=== PATIENT | female | born 1960 | race Asian ===

== ENCOUNTER 2018-04-10 10:17 | Emergency (ER) | payer OTHER ==
[~2018-04-10] VITALS: Ht 170.2 cm; Wt 72.6 kg
[~2018-04-10 10:17] MED LIST: ACET-2619 PO; ALLO100T21 PO; CEFT1PDS43 IV; COLC0.6C PO; DOCU-7 PO; INSU100S55 SC; LISI10TA11 PO; METO-50 PO; ZOLP5TAB7 PO; [UNRECOGNIZED DRUG - CODE] IJ
[2018-04-10 10:19] VITALS: BP 135/71
--- NOTE | 2018-04-10 10:30 | NUR ---
PT. CAME INTO THE ED DUE TO BODY ACHES AND BLEEDING WHEN WIPING. PT. STATES " I HAVE JUST BEEN HAVING BODY ACHES FOR ABOUT A MONTH AND WHENEVER I WIPE THEIR IS SOME BLOOD ON THE TISSUE AND ITS JUST CONCERNING ME BECAUSE I ALSO FEEL A PRESSURE SENSATION WHEN I PEE". 8/10 PRESSURE PAIN IN LOWER ABD THAT IS NON RADIATING. SKIN WARM AND DRY. RR EVEN AND UNLABORED. PT. ABLE TO SPEAK IN FULL AND COMPLETE SENTENCES. PT C/O DIZZYNESS AND CHILLS X 1 MONTH. ER MD NOTIFIED. SAFETY PRECAUTIONS IMPLEMENTED. WILL CONTINUE TO MONITOR.
[2018-04-10] MEDS ORDERED: METO25TE71 PO (11:10)
[2018-04-10] MEDS ORDERED: AMLO5TAB PO (11:10)
[2018-04-10] MEDS ORDERED: NACL 0.9% 1,000 ML IV ONE (11:10)
[2018-04-10] MEDS ORDERED: HYDR-1100 PO (11:10)
[2018-04-10] MEDS ORDERED: METO50TE2 PO (11:10)
--- NOTE | 2018-04-10 11:25 | NUR ---
ULTRASOUND AT BEDSIDE AT THIS TIME.
[2018-04-10 11:27] LABS: BASOPHILS # (AUTO) 0.1 K/uL (0.00-0.22); BASOPHILS % (AUTO) 0.9 % (0.0-2.0); EOSINOPHILS # (AUTO) 0.3 K/uL (0-0.4); EOSINOPHILS % (AUTO) 4.5 % (0.0-4.0); HEMATOCRIT 41.3 % (36-48); LYMPHOCYTES % (AUTO) 25.4 % (20.5-51.1); MEAN CORPUSCULAR HEMOGLOBIN 29 pg (27-31); MEAN CORPUSCULAR HGB CONC 34 g/dL (33-37); MEAN CORPUSCULAR VOLUME 86.6 fL (80-94); MONOCYTES # (AUTO) 0.7 K/uL (0.8-1.0); MONOCYTES % (AUTO) 9.4 % (1.7-9.3); NEUTROPHILS # (AUTO) 4.6 K/uL (1.8-7.7); NEUTROPHILS % (AUTO) 59.8 % (42.2-75.2); PLATELET COUNT (AUTO) 225 K/uL (140-450); RED BLOOD CELL COUNT(AUTO) 4.77 MIL/uL (4.20-5.40); RED CELL DISTRIBUTION WIDTH 13.8 % (11.6-13.7); WHITE BLOOD COUNT (AUTO) 7.7 K/uL (4.8-10.8)
[2018-04-10 11:32] LABS: ANION GAP 13.9 (8-16); CARBON DIOXIDE 26.7 mmol/L (21-32); CREATININE 2.4 mg/dL (0.6-1.3); POTASSIUM 4.6 mmol/L (3.5-5.1)
[2018-04-10 11:49] LABS: APPEARANCE,URINE CLEAR (CLEAR); COLOR,URINE YELLOW (YELLOW); UGLUCOSE 3+ (NEGATIVE)
[2018-04-10 11:50] LABS: BILIRUBIN,URINE NEGATIVE (NEGATIVE); BLOOD, URINE NEGATIVE (NEGATIVE); LEUKOCYTE ESTERASE ,URINE NEGATIVE (NEGATIVE); NITRITE, URINE NEGATIVE (NEGATIVE); RBC,URINE NONE SEEN /HPF (0-5); WBC,URINE 0-5 (RARE) /HPF (0-5)
--- NOTE | 2018-04-10 12:30 | NUR ---
PT. RESTING COMFORTABLY IN BED, RR EVEN AND UNLABORED. WILL CONTINUE TO MONITOR. VSS.
[2018-04-10 13:26] VITALS: BP 156/84
--- NOTE | 2018-04-10 13:26 | NUR ---
Patient discharged with v/s stable. Written and verbal after care instructions given and explained. Patient verbalized understanding. Ambulatory with steady gait. All questions addressed prior to discharge. Advised to follow up with PMD.
== END 2018-04-10 13:26 | disposition home or self-care (01) ==
LOC: MED 10:17
DX: N28.9 Disorder of kidney and ureter, unspecified (principal); E11.65 Type 2 diabetes mellitus with hyperglycemia; I10 Essential (primary) hypertension; Z90.710 Acquired absence of both cervix and uterus; Z86.73 Personal history of transient ischemic attack (TIA), and cerebral infarction without residual deficits; Z79.899 Other long term (current) drug therapy
CPT/HCPCS: 36415; 76830; 80048; 81001; 82948; 85025; 96360; 99285; J7030; Q0092

== ENCOUNTER 2018-07-30 10:04 | Emergency (ER) | payer OTHER ==
[~2018-07-30] VITALS: Ht 167.6 cm; Wt 68.7 kg
[~2018-07-30 10:04] MED LIST changes: -ACET-2619 PO; +AMLO5TAB PO; -CEFT1PDS43 IV; -DOCU-7 PO; +HYDR-1100 PO; -LISI10TA11 PO; -METO-50 PO; +METO50TE2 PO; -ZOLP5TAB7 PO; -[UNRECOGNIZED DRUG - CODE] IJ
[2018-07-30 10:12] VITALS: BP 181/105
--- NOTE | 2018-07-30 10:22 | NUR ---
pt amb to er bed 5
--- NOTE | 2018-07-30 10:26 | NUR ---
BIB SELF WITH C/O URINARY FREQUENCY, BURNING ON URINATION, BLOODY URINE, AND LOWER ABD PRESSURE PAIN SINCE LAST NIGHT WITH DIZZINESS.HX; DM, HTN. RX; INSULIN, METROPOLOL. DENIES N/V/D; SKIN IS PINK/WARM/DRY; AAOX4 WITH EVEN AND STEADY GAIT.PATIENT STATES PAIN OF 0/10 AT THIS CLEMENT. PATIENT POSITIONED FOR COMFORT; HOB ELEVATED; BEDRAILS UP X2; BED DOWN. ER MD MADE AWARE OF PT STATUS.
[2018-07-30] MEDS ORDERED: LEVOFLOXACIN 500 MG TAB PO ONE (11:35)
[2018-07-30] MEDS ORDERED: cefTRIAXone 1,000 MG in LIDOCAINE 1% ***ER ONLY *** 2.1 ML IM ONE (11:35)
[2018-07-30] MEDS ORDERED: INSULIN REGULAR, HUMAN 100 UNIT/ML VIAL SUBQ ONE (11:35)
[2018-07-30] MEDS ORDERED: DEXAMETHASONE 10 MG/ML VIAL IM ONE (11:35)
[2018-07-30] MEDS ORDERED: KETOROLAC 60 MG/2 ML VIAL IM ONE (11:35)
[2018-07-30] MEDS ORDERED: cefTRIAXone 1,000 MG VIAL ONE (12:03)
[2018-07-30] MEDS ORDERED: LIDOCAINE MPF 1% 5mL VIAL ONE (12:05)
[2018-07-30 13:00] VITALS: BP 150/85
--- NOTE | 2018-07-30 13:24 | NUR ---
Patient discharged with v/s stable. Written and verbal after care instructions given and explained. Patient alert, oriented and verbalized understanding of instructions. Ambulatory with steady gait. All questions addressed prior to discharge. ID band removed. Patient advised to follow up with PMD. Rx of VOLTAREN 75MG AND LEVAQUIN 250MG given. Patient educated on indication of medication including possible reaction and side effects. Opportunity to ask questions provided and answered.
== END 2018-07-30 13:24 | disposition home or self-care (01) ==
LOC: MED 10:04
DX: N30.90 Cystitis, unspecified without hematuria (principal); E11.65 Type 2 diabetes mellitus with hyperglycemia; M06.9 Rheumatoid arthritis, unspecified; R42 Dizziness and giddiness; I10 Essential (primary) hypertension; Z79.899 Other long term (current) drug therapy; Z79.4 Long term (current) use of insulin
CPT/HCPCS: 81002; 81025; 96372; 99283; J0696; J1100; J1815; J1885; J2001

== ENCOUNTER 2018-10-14 16:40 | Emergency (ER) | payer OTHER ==
[~2018-10-14] VITALS: Ht 170.2 cm; Wt 68.0 kg
[2018-10-14 16:45] VITALS: BP 253/137
--- NOTE | 2018-10-14 16:57 | NUR ---
58 Y FEMALE BIB [employer] FOR PRE-BOOK. PT CAUGHT STEALING AT [employer], PT THEN C/O DIZZINESS AND NOTED TO HAVE ELEVATED BP. BP IS 253/137. DR DIAMOND NOTIFIED. OTHER VITALS STABLE AT THIS TIME. PT SPEAKING IN FULL COMPLETE SENTENCES. AAOX4. BED IS DOWN, LOCKED, BED RAIL X 1, ERMD TO SEE PT. PMH- DM, HTN
[2018-10-14] MEDS ORDERED: LABETALOL 100 MG/20 ML VIAL IVP ONE (17:05)
--- NOTE | 2018-10-14 17:19 | NUR ---
[facility] EMT AT BEDSIDE FOR EKG
--- NOTE | 2018-10-14 17:26 | NUR ---
LAB AT BEDSIDE
[2018-10-14 17:34] LABS: BASOPHILS # (AUTO) 0.1 K/uL (0.00-0.22); EOSINOPHILS # (AUTO) 0.3 K/uL (0-0.4); EOSINOPHILS % (AUTO) 4.3 % (0.0-4.0); HEMATOCRIT 40.8 % (36-48); HEMOGLOBIN 13.8 g/dL (12.0-16.0); LYMPHOCYTES # (AUTO) 1.7 K/uL (2.5-16.5); LYMPHOCYTES % (AUTO) 24.9 % (20.5-51.1); MEAN CORPUSCULAR HEMOGLOBIN 29 pg (27-31); MEAN CORPUSCULAR HGB CONC 34 g/dL (33-37); MEAN CORPUSCULAR VOLUME 86.2 fL (80-94); MONOCYTES # (AUTO) 0.6 K/uL (0.8-1.0); MONOCYTES % (AUTO) 8.7 % (1.7-9.3); NEUTROPHILS # (AUTO) 4.1 K/uL (1.8-7.7); NEUTROPHILS % (AUTO) 61.1 % (42.2-75.2); PLATELET COUNT (AUTO) 210 K/uL (140-450); RED BLOOD CELL COUNT(AUTO) 4.74 MIL/uL (4.20-5.40); RED CELL DISTRIBUTION WIDTH 13.6 % (11.6-13.7); WHITE BLOOD COUNT (AUTO) 6.8 K/uL (4.8-10.8)
--- NOTE | 2018-10-14 17:41 | NUR ---
PT TAKEN TO CT VIA WHEELCHAIR WITH [employer] OFFICER
--- NOTE | 2018-10-14 17:47 | NUR ---
PT RETURNED FROM CT
[2018-10-14 17:50] LABS: ANION GAP 12.7 (8-16); CARBON DIOXIDE 27.4 mmol/L (21-32); CREATININE 2.5 mg/dL (0.6-1.3); POTASSIUM 4.1 mmol/L (3.5-5.1)
--- NOTE | 2018-10-14 17:53 | NUR ---
245 ACCU CHECK. BP 232/112 DR DIAMOND NOTIFIED.
[2018-10-14 17:56] LABS: ALBUMIN 3.8 g/dL (3.4-5.0); TOTAL BILIRUBIN 0.5 mg/dL (0.0-1.0)
[2018-10-14 18:02] LABS: CREATINE KINASE MB 1.8 ng/mL (0-3.6)
[2018-10-14] MEDS ORDERED: NITROGLYCERIN 0.4 MG TAB SL ONE (18:40)
--- NOTE | 2018-10-14 19:05 | NUR ---
REPORTED FROM HLIARY DIAZ. PT WAS SITE-RELEASED BY PD. PT COOPERATIVE AND UNDERSTANDS PD INSTUCTIONS. CONTINUE TO MONITOR.
--- NOTE | 2018-10-14 19:06 | NUR ---
NEW BP IS 203/110
--- NOTE | 2018-10-14 19:12 | NUR ---
REPORT GIVEN TO ZANE DIAZ, TRANSFER OF CARE AT THIS TIME
--- NOTE | 2018-10-14 19:14 | NUR ---
PT STATES SHE WANTS TO LEAVE, STATES SHE WILL WAIT FOR DISCHARGE PAPERS
[2018-10-14 19:31] VITALS: BP 198/101
--- NOTE | 2018-10-14 19:31 | NUR ---
DISCHARGE PAPERS GIVEN TO PT. BP IMPROVED. VS FOLLOWS 198/101, HR 88, RR 18, O2SAT 97%, 0/10 PAIN. INSTRUCTED TO F/U WITH PCP AND WHEN TO RETURN TO ER. PT VERBALIZED UNDERSTANDING OF DC INSTRUCTIONS. ALL QUESTIONS ANSWERED.
== END 2018-10-14 19:31 | disposition home or self-care (01) ==
LOC: MED 16:40
DX: I10 Essential (primary) hypertension (principal); R42 Dizziness and giddiness; H53.8 Other visual disturbances; R11.0 Nausea; E11.9 Type 2 diabetes mellitus without complications; Z90.710 Acquired absence of both cervix and uterus; Z79.4 Long term (current) use of insulin; Z79.899 Other long term (current) drug therapy
CPT/HCPCS: 36415; 70450; 71045; 80053; 82550; 82553; 82948; 84484; 85025; 93005; 96374; 99284; J3490; Q0092

== ENCOUNTER 2018-10-25 14:08 | Emergency (ER) | payer OTHER ==
[~2018-10-25] VITALS: Ht 170.2 cm; Wt 72.6 kg
--- NOTE | 2018-10-25 14:11 | NUR ---
PT TRANSFERRED TO BED 4 BY [facility]
[2018-10-25 14:13] VITALS: BP 222/97
--- NOTE | 2018-10-25 14:21 | NUR ---
PATIENT BIBA FROM HOME FOR GENERALIZED WEAKNESS X 1 MONTH, EPIGASTRIC PAIN 10/, N/V, DIZZINESS, B/P HAS BEEN HIGH PER [facility] OVER 200, PT STATES SHE IS COMPLIANT WITH HER MEDICATIONS. PMH HTN, DM, GOUT . SKIN IS PINK/WARM/DRY; LUNGS CLEAR BL; C/O SOB, ON RA, O2 SAT 98%, PATIENT POSITIONED FOR COMFORT; HOB ELEVATED; BEDRAILS UP X2; BED DOWN. ER MD MADE AWARE OF PT STATUS.
--- NOTE | 2018-10-25 14:24 | NUR ---
ECG AT BEDSIDE.
--- NOTE | 2018-10-25 14:26 | NUR ---
Patient being evaluated by physician at bedside.
[2018-10-25] MEDS ORDERED: ENALAPRILAT 2.5 MG/2 ML VIAL IVP ONE ×2 (14:35→15:55)
[2018-10-25] MEDS ORDERED: NACL 0.9% 1,000 ML IV ONE (14:35)
[2018-10-25 14:58] LABS: BASOPHILS # (AUTO) 0.1 K/uL (0.00-0.22); BASOPHILS % (AUTO) 1.2 % (0.0-2.0); EOSINOPHILS # (AUTO) 0.2 K/uL (0-0.4); EOSINOPHILS % (AUTO) 3.4 % (0.0-4.0); HEMATOCRIT 42.5 % (36-48); HEMOGLOBIN 14.4 g/dL (12.0-16.0); LYMPHOCYTES # (AUTO) 1.7 K/uL (2.5-16.5); LYMPHOCYTES % (AUTO) 23.6 % (20.5-51.1); MEAN CORPUSCULAR HEMOGLOBIN 29 pg (27-31); MEAN CORPUSCULAR HGB CONC 34 g/dL (33-37); MEAN CORPUSCULAR VOLUME 86.4 fL (80-94); MONOCYTES # (AUTO) 0.4 K/uL (0.8-1.0); MONOCYTES % (AUTO) 5.7 % (1.7-9.3); NEUTROPHILS # (AUTO) 4.7 K/uL (1.8-7.7); NEUTROPHILS % (AUTO) 66.1 % (42.2-75.2); PLATELET COUNT (AUTO) 225 K/uL (140-450); RED BLOOD CELL COUNT(AUTO) 4.92 MIL/uL (4.20-5.40); RED CELL DISTRIBUTION WIDTH 13.7 % (11.6-13.7)
[2018-10-25 15:07] LABS: CARBON DIOXIDE 26.2 mmol/L (21-32); CREATININE 2.1 mg/dL (0.6-1.3); POTASSIUM 4.2 mmol/L (3.5-5.1)
[2018-10-25 15:13] LABS: ALBUMIN 3.7 g/dL (3.4-5.0); TOTAL BILIRUBIN 0.5 mg/dL (0.0-1.0)
[2018-10-25 15:24] LABS: APPEARANCE,URINE CLEAR (CLEAR); BILIRUBIN,URINE NEGATIVE (NEGATIVE); BLOOD, URINE 1+ (NEGATIVE); COLOR,URINE YELLOW (YELLOW); LEUKOCYTE ESTERASE ,URINE 1+ (NEGATIVE); NITRITE, URINE NEGATIVE (NEGATIVE); UGLUCOSE 2+ (NEGATIVE)
--- NOTE | 2018-10-25 15:30 | NUR ---
PT RESTING IN BED, NO S/S OF DISTRESS, BP 207/99, MD AWARE, WILL FOLLOW UP WITH NEW ORDERS.
[2018-10-25 15:49] LABS: HYALINE CASTS, URINE 0-10 /LPF (None Seen); WBC,URINE >25 (MANY) /HPF (0-5)
[2018-10-25] MEDS ORDERED: cefTRIAXone 1,000 MG VIAL ONE (16:08)
--- NOTE | 2018-10-25 16:30 | NUR ---
PT STATED FEELING MUCH BETTER NOW, NO S/S OF DISTRESS, BP STILL HIGH, DR. PRIETO AWARE.
[2018-10-25 17:22] VITALS: BP 187/99
--- NOTE | 2018-10-25 17:22 | NUR ---
Patient discharged with v/s stable. Written and verbal after care instructions given and explained. All questions addressed prior to discharge. Rx of CEPHALEXIN, ZOFRAN given. Patient educated on indication of medication including possible reaction and side effects. ID band removed. IV SITE REMOVED, Patient advised to follow up with PMD.
== END 2018-10-25 17:22 | disposition home or self-care (01) ==
LOC: MED 14:08
DX: N39.0 Urinary tract infection, site not specified (principal); R53.1 Weakness; I10 Essential (primary) hypertension; R07.9 Chest pain, unspecified; E11.9 Type 2 diabetes mellitus without complications; Z79.899 Other long term (current) drug therapy; Z79.4 Long term (current) use of insulin
CPT/HCPCS: 36415; 71045; 80053; 81001; 83605; 83880; 84484; 85025; 87040; 87086; 93005; 96361; 96365; 96375; 96376; 99284; J0696; J3490; J7030; Q0092

== ENCOUNTER 2019-11-22 09:25 | Emergency (ER) | payer OTHER ==
[~2019-11-22] VITALS: Ht 165.1 cm; Wt 63.5 kg
[2019-11-22 09:32] VITALS: BP 189/88
--- NOTE | 2019-11-22 09:40 | NUR ---
AMB TO BED 11
--- NOTE | 2019-11-22 09:46 | NUR ---
59 YO FEMALE CO DIZZINESS AND RIGHT SHOULDER PAIN. PT STATES THAT SHE DID NOT TAKE BP MED THIS MORNING. 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 NO FACIAL DROOPING OR SLURRED SPEECH NOTED. DENIES ANY COUGH, FEVER. DENIES V/D AND STATES NAUSEA IN MORNINGS ONLY. CHRONIC RIGHT SHOULDER PAIN FROM FALL 2 YEARS AGO HX- DM, HTN, GOUT, ARTHRITIS
--- NOTE | 2019-11-22 09:50 | NUR ---
ERMD AT BEDSIDE EVALUATING PT
--- NOTE | 2019-11-22 11:39 | NUR ---
APPLIED SLING TO PT RIGHT SHOULDER
[2019-11-22 11:41] VITALS: BP 159/82
== END 2019-11-22 11:41 | disposition home or self-care (01) ==
LOC: MED 09:25
DX: M65.242 Calcific tendinitis, left hand (principal); R11.10 Vomiting, unspecified; E11.9 Type 2 diabetes mellitus without complications; I10 Essential (primary) hypertension; Z79.899 Other long term (current) drug therapy
CPT/HCPCS: 73030; 99283; Q0092